=== PATIENT | male | born 1990 | race Two or more races ===

== ENCOUNTER 2017-06-29 19:38 | Emergency (ER) | payer OTHER ==
[~2017-06-29] VITALS: Ht 167.6 cm; Wt 84.0 kg
[2017-06-29 19:40] VITALS: Ht 167.6 cm; Wt 84.0 kg
[2017-06-29] MEDS ORDERED: CLIN-73 PO (21:55)
[2017-06-29] MEDS ORDERED: IBUP-1542 PO (21:55)
[2017-06-29] MEDS ORDERED: CLINDAMYCIN 300 MG INJ IM ONE (22:00)
--- NOTE | 2017-06-29 22:05 | ERD ---
ER Documentation Chief Complaint Date/Time DATE: 06/29/17 TIME: 22:02 Chief Complaint right arm swelling, multiple open wounds noted on bilateral arms HPI 27-year-old male presents here to emergency department for complaints of swelling, multiple open wounds or lesions in bilateral arms and swelling surrounding it and induration after multiple injections of heroin and methamphetamine. Patient has history of IV drug use. Patient has had this type of infection before. Patient has pus coming from the areas, but it has drained. Patient's complaint of pain in affected area sharp pain, 4/scale, as was upon touching the areas. Patient denies any fever or chills. Patient denies any numbness or tingling. ROS All systems reviewed and are negative except as per history of present illness. Medications Home Meds Active Scripts Ibuprofen* (Motrin*) 600 Mg Tab, 600 MG PO Q6H Y for PAIN AND OR ELEVATED TEMP, #30 TAB Prov:TREE ROJO NP 06/29/17 Clindamycin Hcl* (Clindamycin Hcl*) 300 Mg Capsule, 300 MG PO TID for 10 Days, CAP Prov:TREE ROJO NP 06/29/17 Allergies Allergies: Coded Allergies: No Known Allergy (Unverified , 06/29/17) PMhx/Soc Medical and Surgical Hx: pt denies Medical Hx, pt denies Surgical Hx History of Surgery: No Anesthesia Reaction: No Hx Neurological Disorder: No Hx Respiratory Disorders: No Hx Cardiac Disorders: No Hx Psychiatric Problems: No Hx Miscellaneous Medical Probl: No Hx Alcohol Use: No Hx Substance Use: Yes Hx Tobacco Use: Yes Smoking Status: Current every day smoker FmHx Family History: No coronary disease, No diabetes, No other Physical Exam Vitals Vital Signs Date Time Temp Pulse Resp B/P Pulse Ox O2 Delivery O2 Flow Rate FiO2 06/29/17 19:40 98.1 100 18 170/83 100 Physical Exam GENERAL: The patient is well developed and appropriate for usual state of health, in no apparent distress. CHEST: Clear to auscultation bilaterally. There are no rales, wheezes or rhonchi. HEART: Regular rate and rhythm. No murmurs, clicks, rubs or gallops. No S3 or S4. ABDOMEN: Soft, nontender and nondistended. Good bowel sounds. No rebound or guarding. No gross peritonitis. No gross organomegaly or masses. No Wright sign or McBurney point tenderness. BACK: No midline or flank tenderness. EXTREMITIES: Equal pulses bilaterally. There is no peripheral clubbing, cyanosis or edema. No focal swelling or erythema. Full range of motion. Grossly neurovascularly intact. NEURO: Alert and oriented. Cranial nerves 2-12 intact. Motor strength in all 4 extremities with 5/5 strength. Sensation grossly intact. Normal speech and gait. SKIN: Noted multiple open lesions in upper extremities bilateral arms, with induration and erythema surrounding the area, no fluctuance noted. Tender on palpation noted. There is no apparent ecchymosis or petechia. The skin is warm and dry. HEMATOLOGIC AND LYMPHATIC: There is no evidence of excessive bruising or lymphedema. No gross cervical, axillary, or inguinal lymphadenopathy. Results 24 hrs Current Medications Medications (Trade) Dose Ordered Sig/Fabiola Route PRN Reason Start Time Stop Time Status Last Admin Dose Admin Clindamycin Phosphate (Cleocin) 600 mg ONCE ONCE IM 06/29/17 22:00 06/29/17 22:01 DC Clindamycin was given here in emergency department for treatment of infection. Tolerated medication well. Procedures/MDM Medical decision making: Patient symptoms most likely is consistent with a soft tissue abscess of multiple areas of injection sites. No symptoms of any fluctuance at this time that needs to be drained. No symptoms of any sepsis at this time, patient appears well and is hemodynamically stable. No symptoms of sepsis at this time. No symptoms of any compartment syndrome. Prescription was given for ibuprofen, clindamycin, is advised to have it rechecked in 2 days , avoid using IV drug use, patient was advised to return emergency department for any worsening symptoms. Disposition: Home. Stable. Departure Diagnosis: Primary Impression: Soft tissue abscess Condition: Stable Patient Instructions: Abscess, Antiobiotic Treatment Only TREE ROJO NP Jun 29, 2017 22:05
[2017-06-29 23:07] VITALS: BP 155/85; PULSE 98; RESP 18; TEMP 98.4
== END 2017-06-29 23:08 | disposition home or self-care (01) ==
LOC: FTE 19:38
DX: L02.413 Cutaneous abscess of right upper limb (principal); F17.210 Nicotine dependence, cigarettes, uncomplicated
CPT/HCPCS: 96372; Z7502; Z7610